=== PATIENT | female | born 1970 | race Caucasian/White ===

== ENCOUNTER 2021-08-28 17:23 | Emergency (ER) | payer OTHER ==
[~2021-08-28 17:23] MED LIST: CALCIUM MAGNES1 EACH PO; CHILD CHEW VIT1 EACH PO; IRON256 MG PO; NORCO 5-325 TA1 EACH PO; SYNTHROID75 MCG PO
== END 2021-08-28 20:20 | disposition home or self-care (01) ==
LOC: FER 17:23
DX: M79.662 Pain in left lower leg (principal); E03.9 Hypothyroidism, unspecified; Z88.1 Allergy status to other antibiotic agents; Z88.2 Allergy status to sulfonamides; Z79.890 Hormone replacement therapy
CPT/HCPCS: 93971